=== PATIENT | female | born 1995 | race Caucasian/White ===

== ENCOUNTER 2020-08-08 20:23 | Emergency (ER) | payer MEDICAID ==
[~2020-08-08] VITALS: Ht 167.6 cm; Wt 100.5 kg
[2020-08-08 20:43] VITALS: Ht 167.6 cm; Wt 100.5 kg
[2020-08-08 22:14] VITALS: BP 128/78
== END 2020-08-08 22:14 | disposition home or self-care (01) ==
LOC: ED 20:23
DX: S93.402A Sprain of unspecified ligament of left ankle, initial encounter (principal); W20.8XXA Other cause of strike by thrown, projected or falling object, initial encounter; Y93.89 Activity, other specified; Y92.89 Other specified places as the place of occurrence of the external cause; Y99.8 Other external cause status

== ENCOUNTER 2020-08-25 15:28 | Emergency (ER) | payer OTHER, MEDICAID ==
[~2020-08-25] VITALS: Ht 167.6 cm; Wt 97.5 kg
[2020-08-25 16:22] VITALS: BP 135/106; Ht 167.6 cm; Wt 97.5 kg
== END 2020-08-26 04:51 | disposition home or self-care (01) ==
LOC: ED 15:28
DX: S13.9XXA Sprain of joints and ligaments of unspecified parts of neck, initial encounter (principal); S63.602A Unspecified sprain of left thumb, initial encounter; N39.0 Urinary tract infection, site not specified; Z98.890 Other specified postprocedural states; V49.49XA Driver injured in collision with other motor vehicles in traffic accident, initial encounter; Y93.I9 Activity, other involving external motion; Y92.488 Other paved roadways as the place of occurrence of the external cause; Y99.8 Other external cause status